=== PATIENT | female | born 1955 | race Caucasian/White ===

== ENCOUNTER 2021-10-15 19:15 | Observation (INO) ==
[2021-10-15 20:37] LABS: Bilirubin,Urine Negative (Negative); Blood,Urine Large (Negative); Clarity,Urine Cloudy (Clear); Color,Urine Yellow (Yellow); Glucose,Urine (UA) Normal (Normal); Ketones,Urine Negative (Negative); Leukocyte Esterase,Urine Large (Negative); Nitrite,Urine Negative (Negative); Protein,Urine 100 mg/dL (Neg-Trace); Specific Gravity,Urine 1.025 (1.010-1.025); Urobilinogen,Urine Normal (Normal)
[2021-10-15 20:43] LABS: Bacteria,Urine Many per hpf (None-Few); RBC,Urine 0-3 per hpf (0-3); Squamous Epithelial Cell,Urine Few per hpf (None-Few); WBC,Urine TNTC per hpf (0-3)
[2021-10-15] MEDS ORDERED: cefTRIAXone 1,000 MG in Water for inj. (sterile) 10 ML IVP ONE (20:49)
[2021-10-15 20:50] LABS: Basophils % 0.4 %; Eosinophils # 0.5 K/mcL (0.0-0.6); Eosinophils % 7.5 %; Hematocrit 41.1 % (35.3-44.9); Hemoglobin 13.1 g/dL (11.5-15.4); Immature Granulocytes % 0.1 % (0-4); Lymphocytes # 1.8 K/mcL (0.6-4.6); Lymphocytes % 24.4 %; Mean Corpuscular HGB Conc 31.9 g/dL (31.6-35.5); Mean Corpuscular Hemoglobin 29.2 pg (28.0-33.3); Mean Corpuscular Volume 91.7 fL (83.0-100.0); Mean Platelet Volume 8.9 fL (9.4-12.4); Monocytes # 0.6 K/mcL (0.0-1.3); Monocytes % 8.8 %; Neutrophils # 4.2 K/mcL (1.6-8.9); Platelet Count 285 K/mcL (140-400); Red Blood Count 4.48 M/mcL (3.82-4.97); Red Cell Distribution Width 13.2 % (11.5-14.5); Segmented Neutrophils % 58.8 %; White Blood Count 7.2 K/mcL (4.3-11.1)
[2021-10-15 21:08] LABS: BUN/Creatinine Ratio 32 (6-26); Blood Urea Nitrogen 25 mg/dL (8-23); Calcium 8.7 mg/dL (8.6-10.3); Carbon Dioxide 26 mEq/L (23-29); Chloride 105 mEq/L (98-107); Glucose 79 mg/dL (70-105); Osmolality,Calculated 291 (280-300); Potassium 3.8 mEq/L (3.5-5.1); Sodium 139 mEq/L (136-145); eGFR For African Americans > 60 (> 60); eGFR For Non-African Americans > 60 (> 60)
[2021-10-15] MEDS ORDERED: Naloxone 0.4 MG/ML INJ IVP PRN ×2 (22:30→23:11)
[2021-10-15] MEDS ORDERED: HYDROCODONE PO SCH (23:11)
[2021-10-15] MEDS ORDERED: [UNRECOGNIZED DRUG - OTHER] PO SCH (23:11)
[2021-10-15] MEDS ORDERED: ACETAMINOPHEN PO SCH (23:11)
[2021-10-16] MEDS: Aspirin 81 MG TAB.CHEW PO SCH (09:42)
[2021-10-16] MEDS: Cyanocobalamin (B-12) 1,000 MCG TABLET PO SCH (09:42)
[2021-10-16] MEDS: BuPROPion SR (12 HR) 100 MG TABLET PO SCH ×2 (09:42→20:53)
[2021-10-16] MEDS: Celecoxib 200 MG CAPSULE PO SCH ×2 (09:42→20:53)
[2021-10-16] MEDS: Prenatal Vit/FA 1 EACH TABLET PO SCH (09:42)
[2021-10-16] MEDS: Gabapentin 400 MG CAPSULE PO SCH ×2 (09:42→20:53)
[2021-10-16] MEDS: *HR* OxyCODONE Immed Rel 15 MG TABLET PO PRN (17:49)
[2021-10-17] MEDS: *HR* OxyCODONE Immed Rel 15 MG TABLET PO PRN ×3 (02:04→18:41)
[2021-10-17] MEDS: *HR* Enoxaparin 40 MG/0.4 ML SYRINGE SQ SCH (05:10)
[2021-10-17] MEDS: cefTRIAXone 1,000 MG in Water for inj. (sterile) 10 ML IVP SCH (08:35)
[2021-10-17] MEDS: Aspirin 81 MG TAB.CHEW PO SCH (08:36)
[2021-10-17] MEDS: Cyanocobalamin (B-12) 1,000 MCG TABLET PO SCH (08:36)
[2021-10-17] MEDS: Celecoxib 200 MG CAPSULE PO SCH ×2 (08:36→20:54)
[2021-10-17] MEDS: Gabapentin 400 MG CAPSULE PO SCH ×2 (08:36→20:54)
[2021-10-17] MEDS: Prenatal Vit/FA 1 EACH TABLET PO SCH (08:36)
[2021-10-17] MEDS: BuPROPion SR (12 HR) 100 MG TABLET PO SCH ×2 (11:03→20:54)
[2021-10-17 14:33] LABS: Basophils % 0.3 %; Eosinophils # 0.3 K/mcL (0.0-0.6); Eosinophils % 4.7 %; Hematocrit 40.7 % (35.3-44.9); Hemoglobin 12.9 g/dL (11.5-15.4); Immature Granulocytes % 0.2 % (0-4); Lymphocytes # 1.7 K/mcL (0.6-4.6); Lymphocytes % 30.3 %; Mean Corpuscular HGB Conc 31.7 g/dL (31.6-35.5); Mean Corpuscular Hemoglobin 29.5 pg (28.0-33.3); Mean Corpuscular Volume 92.9 fL (83.0-100.0); Monocytes # 0.5 K/mcL (0.0-1.3); Monocytes % 7.8 %; Neutrophils # 3.3 K/mcL (1.6-8.9); Platelet Count 285 K/mcL (140-400); Red Blood Count 4.38 M/mcL (3.82-4.97); Red Cell Distribution Width 13.1 % (11.5-14.5); Segmented Neutrophils % 56.7 %; White Blood Count 5.7 K/mcL (4.3-11.1)
[2021-10-17 14:54] LABS: BUN/Creatinine Ratio 19 (6-26); Blood Urea Nitrogen 15 mg/dL (8-23); Calcium 8.5 mg/dL (8.6-10.3); Carbon Dioxide 24 mEq/L (23-29); Chloride 108 mEq/L (98-107); Glucose 153 mg/dL (70-105); Osmolality,Calculated 294 (280-300); Potassium 3.9 mEq/L (3.5-5.1); Sodium 140 mEq/L (136-145); eGFR For African Americans > 60 (> 60); eGFR For Non-African Americans > 60 (> 60)
[2021-10-18] MEDS: *HR* OxyCODONE Immed Rel 15 MG TABLET PO PRN ×3 (02:48→22:33)
[2021-10-18] MEDS: *HR* Enoxaparin 40 MG/0.4 ML SYRINGE SQ SCH (05:02)
[2021-10-18] MEDS: Prenatal Vit/FA 1 EACH TABLET PO SCH (09:10)
[2021-10-18] MEDS: Aspirin 81 MG TAB.CHEW PO SCH (09:10)
[2021-10-18] MEDS: Cyanocobalamin (B-12) 1,000 MCG TABLET PO SCH (09:10)
[2021-10-18] MEDS: Gabapentin 400 MG CAPSULE PO SCH ×2 (09:10→20:02)
[2021-10-18] MEDS: Celecoxib 200 MG CAPSULE PO SCH ×2 (09:11→20:02)
[2021-10-18] MEDS: BuPROPion SR (12 HR) 100 MG TABLET PO SCH ×2 (09:12→20:03)
[2021-10-18] MEDS: cefTRIAXone 1,000 MG in Water for inj. (sterile) 10 ML IVP SCH (09:12)
[2021-10-18] MEDS: carvediloL 6.25 MG TABLET PO SCH (16:38)
[2021-10-18] MEDS: *HR* OxyCODONE ER (12 HR) 10 MG TABLET PO SCH (20:02)
[2021-10-19] MEDS: *HR* Enoxaparin 40 MG/0.4 ML SYRINGE SQ SCH (05:48)
[2021-10-19] MEDS: *HR* OxyCODONE ER (12 HR) 10 MG TABLET PO SCH (05:48)
[2021-10-19] MEDS: Prenatal Vit/FA 1 EACH TABLET PO SCH (08:48)
[2021-10-19] MEDS: Celecoxib 200 MG CAPSULE PO SCH (08:48)
[2021-10-19] MEDS: Aspirin 81 MG TAB.CHEW PO SCH (08:48)
[2021-10-19] MEDS: Gabapentin 400 MG CAPSULE PO SCH (08:48)
[2021-10-19] MEDS: BuPROPion SR (12 HR) 100 MG TABLET PO SCH (08:48)
[2021-10-19] MEDS: carvediloL 6.25 MG TABLET PO SCH (08:48)
[2021-10-19] MEDS: cefTRIAXone 1,000 MG in Water for inj. (sterile) 10 ML IVP SCH (08:48)
[2021-10-19] MEDS: *HR* OxyCODONE Immed Rel 15 MG TABLET PO PRN (08:53)
[2021-10-19 11:24] VITALS: BP 132/75; PULSE 73; RESP 17; TEMP 98.3; O2SAT 92
[2021-10-19] MEDS: Cyanocobalamin (B-12) 1,000 MCG TABLET PO SCH (14:06)
== END 2021-10-19 15:20 | disposition short-term general hospital (02) ==
LOC: INPGRE 19:15 → EMEROOGRE 19:15 → INPGRE 22:52
PROVIDERS: ADMIT Internal Medicine; ATTEND Internal Medicine

== ENCOUNTER 2021-10-27 14:35 | Inpatient (IN) ==
[2021-10-28] MEDS ORDERED: *HR* OxyCODONE Immed Rel 5 MG TABLET PO PRN (15:22)
[2021-10-28] MEDS ORDERED: NON-FORMULARY MEDICATION 1 EACH EACH (Alendronate Sodium [Fosamax] 70 MG Tablet) PO SCH (15:30)
[2021-10-28] MEDS: *HR* OxyCODONE Immed Rel 5 MG TABLET PO PRN ×2 (16:12→22:59)
[2021-10-28] MEDS: carvediloL 6.25 MG TABLET PO SCH (16:12)
[2021-10-28] MEDS: Cefdinir 300 MG CAPSULE PO SCH (21:34)
[2021-10-28] MEDS: Sennosides/Docusate Sodium TABLET PO SCH (21:35)
[2021-10-28] MEDS: BuPROPion SR (12 HR) 100 MG TABLET PO SCH (21:35)
[2021-10-28] MEDS: Gabapentin 400 MG CAPSULE PO SCH (21:35)
[2021-10-28] MEDS: methocarbamoL 500 MG TABLET PO PRN (21:41)
[2021-10-29] MEDS: *HR* OxyCODONE Immed Rel 5 MG TABLET PO PRN ×4 (05:04→22:37)
[2021-10-29 06:04] LABS: Basophils % 0.5 %; Eosinophils # 0.8 K/mcL (0.0-0.6); Eosinophils % 10.7 %; Hematocrit 41.1 % (35.3-44.9); Hemoglobin 13.2 g/dL (11.5-15.4); Immature Granulocytes % 0.3 % (0-4); Lymphocytes % 25.8 %; Mean Corpuscular HGB Conc 32.1 g/dL (31.6-35.5); Mean Corpuscular Hemoglobin 29.4 pg (28.0-33.3); Mean Corpuscular Volume 91.5 fL (83.0-100.0); Mean Platelet Volume 8.8 fL (9.4-12.4); Monocytes # 0.8 K/mcL (0.0-1.3); Monocytes % 10.5 %; Neutrophils # 4.1 K/mcL (1.6-8.9); Platelet Count 381 K/mcL (140-400); Red Blood Count 4.49 M/mcL (3.82-4.97); Red Cell Distribution Width 12.7 % (11.5-14.5); Segmented Neutrophils % 52.2 %; White Blood Count 7.8 K/mcL (4.3-11.1)
[2021-10-29 06:22] LABS: BUN/Creatinine Ratio 17 (6-26); Blood Urea Nitrogen 10 mg/dL (8-23); Calcium 8.8 mg/dL (8.6-10.3); Carbon Dioxide 30 mEq/L (23-29); Chloride 102 mEq/L (98-107); Glucose 88 mg/dL (70-105); Osmolality,Calculated 284 (280-300); Potassium 3.6 mEq/L (3.5-5.1); Sodium 138 mEq/L (136-145); eGFR For African Americans > 60 (> 60); eGFR For Non-African Americans > 60 (> 60)
[2021-10-29] MEDS: *HR* Enoxaparin 40 MG/0.4 ML SYRINGE SQ SCH (06:28)
[2021-10-29] MEDS: Cholecalciferol (D-3) 1,000 UNIT (25MCG) TABLET PO SCH (08:13)
[2021-10-29] MEDS: Sennosides/Docusate Sodium TABLET PO SCH ×2 (08:13→20:40)
[2021-10-29] MEDS: methocarbamoL 500 MG TABLET PO PRN ×2 (08:13→16:39)
[2021-10-29] MEDS: Prenatal Vit/FA 1 EACH TABLET PO SCH (08:13)
[2021-10-29] MEDS: Cyanocobalamin (B-12) 1,000 MCG TABLET PO SCH (08:13)
[2021-10-29] MEDS: BuPROPion SR (12 HR) 100 MG TABLET PO SCH ×2 (08:14→20:39)
[2021-10-29] MEDS: Gabapentin 400 MG CAPSULE PO SCH ×2 (08:14→20:39)
[2021-10-29] MEDS: carvediloL 6.25 MG TABLET PO SCH ×2 (08:14→16:39)
[2021-10-29] MEDS: Cefdinir 300 MG CAPSULE PO SCH ×2 (08:14→20:39)
[2021-10-29] MEDS: Loratadine/Pseudophed (12 HR) 1 EACH TABLET PO SCH (08:15)
[2021-10-29] MEDS ORDERED: NON-FORMULARY MEDICATION 1 EACH EACH (Biotin 5 MG Tablet) PO SCH (09:00)
[2021-10-29] MEDS ORDERED: *HR* OxyCODONE Immed Rel 5 MG TABLET PO PRN (10:37)
[2021-10-29 15:55] LABS: Bilirubin,Urine Negative (Negative); Blood,Urine Trace-intact (Negative); Clarity,Urine Clear (Clear); Color,Urine Yellow (Yellow); Glucose,Urine (UA) Normal (Normal); Ketones,Urine Negative (Negative); Leukocyte Esterase,Urine Trace (Negative); Nitrite,Urine Negative (Negative); Protein,Urine Trace mg/dL (Neg-Trace); Specific Gravity,Urine 1.025 (1.010-1.025); Urobilinogen,Urine Normal (Normal)
[2021-10-29 16:29] LABS: Squamous Epithelial Cell,Urine Few per hpf (None-Few)
[2021-10-29] MEDS: Nystatin POWDER 30 GM BOTTLE TP SCH (20:41)
[2021-10-30] MEDS: methocarbamoL 500 MG TABLET PO PRN ×2 (02:39→13:42)
[2021-10-30] MEDS: *HR* OxyCODONE Immed Rel 5 MG TABLET PO PRN ×5 (02:39→21:22)
[2021-10-30] MEDS: *HR* Enoxaparin 40 MG/0.4 ML SYRINGE SQ SCH (05:08)
[2021-10-30] MEDS: Cholecalciferol (D-3) 1,000 UNIT (25MCG) TABLET PO SCH (08:04)
[2021-10-30] MEDS: carvediloL 6.25 MG TABLET PO SCH ×2 (08:04→16:01)
[2021-10-30] MEDS: BuPROPion SR (12 HR) 100 MG TABLET PO SCH ×2 (08:04→21:22)
[2021-10-30] MEDS: Gabapentin 400 MG CAPSULE PO SCH ×2 (08:04→21:22)
[2021-10-30] MEDS: Cefdinir 300 MG CAPSULE PO SCH ×2 (08:05→21:22)
[2021-10-30] MEDS: Prenatal Vit/FA 1 EACH TABLET PO SCH (08:05)
[2021-10-30] MEDS: Nystatin POWDER 30 GM BOTTLE TP SCH ×3 (08:05→21:23)
[2021-10-30] MEDS: Cyanocobalamin (B-12) 1,000 MCG TABLET PO SCH (08:05)
[2021-10-30] MEDS: Sennosides/Docusate Sodium TABLET PO SCH ×2 (08:05→21:23)
[2021-10-30] MEDS: Loratadine/Pseudophed (12 HR) 1 EACH TABLET PO SCH (08:06)
[2021-10-30] MEDS: Nystatin SUSP 5 ML UD.LIQ PO SCH ×3 (13:42→21:23)
[2021-10-31] MEDS: *HR* OxyCODONE Immed Rel 5 MG TABLET PO PRN ×6 (02:06→23:37)
[2021-10-31] MEDS: *HR* Enoxaparin 40 MG/0.4 ML SYRINGE SQ SCH (06:36)
[2021-10-31] MEDS: carvediloL 6.25 MG TABLET PO SCH ×2 (09:02→15:43)
[2021-10-31] MEDS: BuPROPion SR (12 HR) 100 MG TABLET PO SCH ×2 (09:43→22:52)
[2021-10-31] MEDS: Gabapentin 400 MG CAPSULE PO SCH ×2 (09:43→22:52)
[2021-10-31] MEDS: Prenatal Vit/FA 1 EACH TABLET PO SCH (09:43)
[2021-10-31] MEDS: Cholecalciferol (D-3) 1,000 UNIT (25MCG) TABLET PO SCH (09:44)
[2021-10-31] MEDS: Sennosides/Docusate Sodium TABLET PO SCH ×2 (09:44→22:52)
[2021-10-31] MEDS: Nystatin SUSP 5 ML UD.LIQ PO SCH ×4 (09:44→22:52)
[2021-10-31] MEDS: Cefdinir 300 MG CAPSULE PO SCH ×2 (09:44→22:52)
[2021-10-31] MEDS: Cyanocobalamin (B-12) 1,000 MCG TABLET PO SCH (09:44)
[2021-10-31] MEDS: Nystatin POWDER 30 GM BOTTLE TP SCH ×3 (09:45→22:52)
[2021-10-31] MEDS: Loratadine/Pseudophed (12 HR) 1 EACH TABLET PO SCH (09:49)
[2021-10-31] MEDS: methocarbamoL 500 MG TABLET PO PRN (13:33)
[2021-11-01] MEDS: *HR* Enoxaparin 40 MG/0.4 ML SYRINGE SQ SCH (04:13)
[2021-11-01] MEDS: *HR* OxyCODONE Immed Rel 5 MG TABLET PO PRN ×5 (04:14→23:37)
[2021-11-01 04:31] LABS: Basophils % 0.5 %; Eosinophils # 0.7 K/mcL (0.0-0.6); Eosinophils % 9.1 %; Hematocrit 38.5 % (35.3-44.9); Hemoglobin 12.6 g/dL (11.5-15.4); Immature Granulocytes % 0.3 % (0-4); Lymphocytes % 27.7 %; Mean Corpuscular HGB Conc 32.7 g/dL (31.6-35.5); Mean Corpuscular Hemoglobin 30.1 pg (28.0-33.3); Mean Corpuscular Volume 91.9 fL (83.0-100.0); Mean Platelet Volume 8.7 fL (9.4-12.4); Monocytes # 0.7 K/mcL (0.0-1.3); Monocytes % 9.1 %; Neutrophils # 3.9 K/mcL (1.6-8.9); Platelet Count 347 K/mcL (140-400); Red Blood Count 4.19 M/mcL (3.82-4.97); Red Cell Distribution Width 12.7 % (11.5-14.5); Segmented Neutrophils % 53.3 %; White Blood Count 7.3 K/mcL (4.3-11.1)
[2021-11-01 04:48] LABS: BUN/Creatinine Ratio 19 (6-26); Blood Urea Nitrogen 12 mg/dL (8-23); Calcium 8.6 mg/dL (8.6-10.3); Carbon Dioxide 31 mEq/L (23-29); Chloride 101 mEq/L (98-107); Glucose 92 mg/dL (70-105); Magnesium 2.4 mg/dL (1.6-2.6); Osmolality,Calculated 285 (280-300); Potassium 4.1 mEq/L (3.5-5.1); Sodium 138 mEq/L (136-145); eGFR For African Americans > 60 (> 60); eGFR For Non-African Americans > 60 (> 60)
[2021-11-01] MEDS: Cholecalciferol (D-3) 1,000 UNIT (25MCG) TABLET PO SCH (08:20)
[2021-11-01] MEDS: carvediloL 6.25 MG TABLET PO SCH ×2 (08:20→15:48)
[2021-11-01] MEDS: BuPROPion SR (12 HR) 100 MG TABLET PO SCH ×2 (08:20→23:37)
[2021-11-01] MEDS: Prenatal Vit/FA 1 EACH TABLET PO SCH (08:20)
[2021-11-01] MEDS: methocarbamoL 500 MG TABLET PO PRN ×2 (08:21→15:49)
[2021-11-01] MEDS: Sennosides/Docusate Sodium TABLET PO SCH ×2 (08:21→23:36)
[2021-11-01] MEDS: Cyanocobalamin (B-12) 1,000 MCG TABLET PO SCH (08:21)
[2021-11-01] MEDS: Nystatin POWDER 30 GM BOTTLE TP SCH ×3 (08:22→23:36)
[2021-11-01] MEDS: Nystatin SUSP 5 ML UD.LIQ PO SCH ×4 (08:22→23:36)
[2021-11-01] MEDS: Gabapentin 400 MG CAPSULE PO SCH ×2 (08:22→23:36)
[2021-11-01] MEDS: Cefdinir 300 MG CAPSULE PO SCH ×2 (08:22→23:36)
[2021-11-01] MEDS: Loratadine/Pseudophed (12 HR) 1 EACH TABLET PO SCH (09:40)
[2021-11-02] MEDS: methocarbamoL 500 MG TABLET PO PRN ×2 (00:16→15:20)
[2021-11-02] MEDS: *HR* OxyCODONE Immed Rel 5 MG TABLET PO PRN ×5 (03:35→22:24)
[2021-11-02] MEDS: *HR* Enoxaparin 40 MG/0.4 ML SYRINGE SQ SCH (06:45)
[2021-11-02] MEDS: carvediloL 6.25 MG TABLET PO SCH ×2 (08:28→15:20)
[2021-11-02] MEDS: polyethylene glycoL 3350 17 GM POWD.PACK PO SCH (08:28)
[2021-11-02] MEDS: Prenatal Vit/FA 1 EACH TABLET PO SCH (08:28)
[2021-11-02] MEDS: Cholecalciferol (D-3) 1,000 UNIT (25MCG) TABLET PO SCH (08:28)
[2021-11-02] MEDS: BuPROPion SR (12 HR) 100 MG TABLET PO SCH ×2 (08:28→20:04)
[2021-11-02] MEDS: Nystatin SUSP 5 ML UD.LIQ PO SCH ×4 (08:29→20:02)
[2021-11-02] MEDS: Gabapentin 400 MG CAPSULE PO SCH ×2 (08:29→20:04)
[2021-11-02] MEDS: Sennosides/Docusate Sodium TABLET PO SCH ×2 (08:29→20:02)
[2021-11-02] MEDS: Cefdinir 300 MG CAPSULE PO SCH ×2 (08:29→20:03)
[2021-11-02] MEDS: Cyanocobalamin (B-12) 1,000 MCG TABLET PO SCH (08:29)
[2021-11-02] MEDS: Loratadine/Pseudophed (12 HR) 1 EACH TABLET PO SCH (08:38)
[2021-11-02] MEDS: Nystatin POWDER 30 GM BOTTLE TP SCH ×3 (08:38→20:04)
[2021-11-03] MEDS: methocarbamoL 500 MG TABLET PO PRN ×3 (00:07→16:32)
[2021-11-03] MEDS: *HR* OxyCODONE Immed Rel 5 MG TABLET PO PRN ×5 (03:35→22:25)
[2021-11-03] MEDS: *HR* Enoxaparin 40 MG/0.4 ML SYRINGE SQ SCH (04:51)
[2021-11-03] MEDS: Cyanocobalamin (B-12) 1,000 MCG TABLET PO SCH (08:08)
[2021-11-03] MEDS: Gabapentin 400 MG CAPSULE PO SCH ×2 (08:08→19:59)
[2021-11-03] MEDS: Cholecalciferol (D-3) 1,000 UNIT (25MCG) TABLET PO SCH (08:09)
[2021-11-03] MEDS: Prenatal Vit/FA 1 EACH TABLET PO SCH (08:09)
[2021-11-03] MEDS: Sennosides/Docusate Sodium TABLET PO SCH ×2 (08:09→19:59)
[2021-11-03] MEDS: Nystatin SUSP 5 ML UD.LIQ PO SCH ×4 (08:09→19:58)
[2021-11-03] MEDS: carvediloL 6.25 MG TABLET PO SCH ×2 (08:09→16:31)
[2021-11-03] MEDS: Cefdinir 300 MG CAPSULE PO SCH ×2 (08:09→19:59)
[2021-11-03] MEDS: BuPROPion SR (12 HR) 100 MG TABLET PO SCH ×2 (08:09→19:59)
[2021-11-03] MEDS: polyethylene glycoL 3350 17 GM POWD.PACK PO SCH (08:10)
[2021-11-03] MEDS: Loratadine/Pseudophed (12 HR) 1 EACH TABLET PO SCH (08:10)
[2021-11-03] MEDS: Nystatin POWDER 30 GM BOTTLE TP SCH ×3 (09:28→19:59)
[2021-11-03 14:54] LABS: Adenovirus Not Detected (Not Detect); Bordetella Pertussis Not Detected (Not Detect); Chlamydophila pneumoniae Not Detected (Not Detect); Coronavirus 229E Not Detected (Not Detect); Coronavirus HKU1 Not Detected (Not Detect); Coronavirus NL63 Not Detected (Not Detect); Coronavirus OC43 Not Detected (Not Detect); Human Metapneumovirus Not Detected (Not Detect); Human Rhinovirus/Enterovirus Not Detected (Not Detect); Influenza A Subtype 2009 H1 Not Detected (Not Detect); Influenza B Not Detected (Not Detect); Mycoplasma pneumoniae Not Detected (Not Detect); Parainfluenza Virus 1 Not Detected (Not Detect); Parainfluenza Virus 2 Not Detected (Not Detect); Parainfluenza Virus 3 Not Detected (Not Detect); Parainfluenza Virus 4 Not Detected (Not Detect); Respiratory Syncytial Virus Not Detected (Not Detect); SARS-CoV-2 Not Detected (Not Detect)
[2021-11-04] MEDS: methocarbamoL 500 MG TABLET PO PRN ×4 (00:21→21:09)
[2021-11-04] MEDS: *HR* Enoxaparin 40 MG/0.4 ML SYRINGE SQ SCH (04:36)
[2021-11-04] MEDS: *HR* OxyCODONE Immed Rel 5 MG TABLET PO PRN ×4 (04:36→21:09)
[2021-11-04] MEDS: Nystatin SUSP 5 ML UD.LIQ PO SCH ×2 (08:22→15:12)
[2021-11-04] MEDS: polyethylene glycoL 3350 17 GM POWD.PACK PO SCH (08:22)
[2021-11-04] MEDS: carvediloL 6.25 MG TABLET PO SCH ×2 (08:23→15:12)
[2021-11-04] MEDS: BuPROPion SR (12 HR) 100 MG TABLET PO SCH ×2 (08:23→21:09)
[2021-11-04] MEDS: Loratadine/Pseudophed (12 HR) 1 EACH TABLET PO SCH (08:23)
[2021-11-04] MEDS: Prenatal Vit/FA 1 EACH TABLET PO SCH (08:24)
[2021-11-04] MEDS: Cyanocobalamin (B-12) 1,000 MCG TABLET PO SCH (08:24)
[2021-11-04] MEDS: Cefdinir 300 MG CAPSULE PO SCH ×2 (08:24→21:08)
[2021-11-04] MEDS: Gabapentin 400 MG CAPSULE PO SCH ×2 (08:24→21:08)
[2021-11-04] MEDS: Sennosides/Docusate Sodium TABLET PO SCH ×2 (08:24→21:09)
[2021-11-04] MEDS: Cholecalciferol (D-3) 1,000 UNIT (25MCG) TABLET PO SCH (08:24)
[2021-11-04] MEDS: Nystatin POWDER 30 GM BOTTLE TP SCH ×3 (08:25→21:13)
[2021-11-05] MEDS: *HR* OxyCODONE Immed Rel 5 MG TABLET PO PRN ×3 (02:07→10:01)
[2021-11-05] MEDS: methocarbamoL 500 MG TABLET PO PRN ×3 (06:20→22:38)
[2021-11-05] MEDS: *HR* Enoxaparin 40 MG/0.4 ML SYRINGE SQ SCH (06:20)
[2021-11-05] MEDS: Sennosides/Docusate Sodium TABLET PO SCH ×2 (08:33→22:38)
[2021-11-05] MEDS: Cefdinir 300 MG CAPSULE PO SCH (08:33)
[2021-11-05] MEDS: carvediloL 6.25 MG TABLET PO SCH ×2 (08:33→16:53)
[2021-11-05] MEDS: Prenatal Vit/FA 1 EACH TABLET PO SCH (08:33)
[2021-11-05] MEDS: Cholecalciferol (D-3) 1,000 UNIT (25MCG) TABLET PO SCH (08:34)
[2021-11-05] MEDS: Cyanocobalamin (B-12) 1,000 MCG TABLET PO SCH (08:34)
[2021-11-05] MEDS: BuPROPion SR (12 HR) 100 MG TABLET PO SCH ×2 (08:34→22:38)
[2021-11-05] MEDS: Gabapentin 400 MG CAPSULE PO SCH (08:34)
[2021-11-05] MEDS: polyethylene glycoL 3350 17 GM POWD.PACK PO SCH (08:34)
[2021-11-05] MEDS: Nystatin POWDER 30 GM BOTTLE TP SCH ×3 (08:41→22:43)
[2021-11-05] MEDS: Loratadine/Pseudophed (12 HR) 1 EACH TABLET PO SCH (08:41)
[2021-11-05] MEDS ORDERED: *HR* OxyCODONE/APAP 5/325 TABLET PO PRN (13:42)
[2021-11-05] MEDS: *HR* OxyCODONE/APAP 7.5/325 TABLET PO PRN ×3 (14:11→22:38)
[2021-11-05] MEDS: Gabapentin 300 MG CAPSULE PO SCH ×2 (14:12→22:37)
[2021-11-05] MEDS ORDERED: diazePAM 2 MG TABLET PO PRN (16:33)
[2021-11-06] MEDS: *HR* OxyCODONE/APAP 7.5/325 TABLET PO PRN ×5 (02:32→22:02)
[2021-11-06] MEDS: methocarbamoL 500 MG TABLET PO PRN ×2 (05:19→22:02)
[2021-11-06] MEDS: *HR* Enoxaparin 40 MG/0.4 ML SYRINGE SQ SCH (05:19)
[2021-11-06] MEDS: Prenatal Vit/FA 1 EACH TABLET PO SCH (07:56)
[2021-11-06] MEDS: carvediloL 6.25 MG TABLET PO SCH ×2 (07:56→16:50)
[2021-11-06] MEDS: BuPROPion SR (12 HR) 100 MG TABLET PO SCH ×2 (07:56→22:01)
[2021-11-06] MEDS: Gabapentin 300 MG CAPSULE PO SCH (07:57)
[2021-11-06] MEDS: Loratadine/Pseudophed (12 HR) 1 EACH TABLET PO SCH (07:57)
[2021-11-06] MEDS: Cholecalciferol (D-3) 1,000 UNIT (25MCG) TABLET PO SCH (07:57)
[2021-11-06] MEDS: Sennosides/Docusate Sodium TABLET PO SCH ×2 (07:57→22:01)
[2021-11-06] MEDS: Cyanocobalamin (B-12) 1,000 MCG TABLET PO SCH (07:57)
[2021-11-06] MEDS: polyethylene glycoL 3350 17 GM POWD.PACK PO SCH (07:57)
[2021-11-06] MEDS: Nystatin POWDER 30 GM BOTTLE TP SCH ×3 (07:57→22:01)
[2021-11-06] MEDS: Gabapentin 400 MG CAPSULE PO SCH ×2 (16:50→22:01)
[2021-11-06] MEDS: Menthol 1 EACH LOZENGE PO PRN (22:03)
[2021-11-07] MEDS: *HR* Enoxaparin 40 MG/0.4 ML SYRINGE SQ SCH (04:31)
[2021-11-07] MEDS: methocarbamoL 500 MG TABLET PO PRN ×2 (04:31→18:36)
[2021-11-07] MEDS: *HR* OxyCODONE/APAP 7.5/325 TABLET PO PRN ×4 (04:32→22:46)
[2021-11-07] MEDS: Menthol 1 EACH LOZENGE PO PRN (04:33)
[2021-11-07] MEDS: polyethylene glycoL 3350 17 GM POWD.PACK PO SCH (09:14)
[2021-11-07] MEDS: Cholecalciferol (D-3) 1,000 UNIT (25MCG) TABLET PO SCH (09:14)
[2021-11-07] MEDS: BuPROPion SR (12 HR) 100 MG TABLET PO SCH ×2 (09:14→21:11)
[2021-11-07] MEDS: Cyanocobalamin (B-12) 1,000 MCG TABLET PO SCH (09:14)
[2021-11-07] MEDS: Prenatal Vit/FA 1 EACH TABLET PO SCH (09:14)
[2021-11-07] MEDS: Nystatin POWDER 30 GM BOTTLE TP SCH ×3 (09:15→21:36)
[2021-11-07] MEDS: Loratadine/Pseudophed (12 HR) 1 EACH TABLET PO SCH (09:15)
[2021-11-07] MEDS: carvediloL 6.25 MG TABLET PO SCH ×2 (09:15→17:23)
[2021-11-07] MEDS: Gabapentin 400 MG CAPSULE PO SCH ×3 (09:15→21:11)
[2021-11-07] MEDS: Sennosides/Docusate Sodium TABLET PO SCH ×2 (09:15→21:15)
[2021-11-07 13:02] LABS: Adenovirus Not Detected (Not Detect); Bordetella Pertussis Not Detected (Not Detect); Chlamydophila pneumoniae Not Detected (Not Detect); Coronavirus 229E Not Detected (Not Detect); Coronavirus HKU1 Not Detected (Not Detect); Coronavirus NL63 Not Detected (Not Detect); Coronavirus OC43 Not Detected (Not Detect); Human Metapneumovirus Not Detected (Not Detect); Human Rhinovirus/Enterovirus Not Detected (Not Detect); Influenza A Subtype 2009 H1 Not Detected (Not Detect); Influenza B Not Detected (Not Detect); Parainfluenza Virus 1 Not Detected (Not Detect); Parainfluenza Virus 2 Not Detected (Not Detect); Parainfluenza Virus 3 Not Detected (Not Detect); Parainfluenza Virus 4 Not Detected (Not Detect); Respiratory Syncytial Virus Not Detected (Not Detect)
[2021-11-07 13:03] LABS: Mycoplasma pneumoniae Not Detected (Not Detect)
[2021-11-07 13:04] LABS: SARS-CoV-2 DETECTED (Not Detect)
[2021-11-07] MEDS: dexAMETHasone 4 MG TABLET PO SCH (13:52)
[2021-11-07 13:53] LABS: Basophils % 0.4 %; Eosinophils # 0.1 K/mcL (0.0-0.6); Eosinophils % 2.6 %; Hematocrit 37.9 % (35.3-44.9); Hemoglobin 12.1 g/dL (11.5-15.4); Immature Granulocytes % 0.2 % (0-4); Lymphocytes # 1.4 K/mcL (0.6-4.6); Lymphocytes % 30.7 %; Mean Corpuscular HGB Conc 31.9 g/dL (31.6-35.5); Mean Corpuscular Hemoglobin 29.8 pg (28.0-33.3); Mean Corpuscular Volume 93.3 fL (83.0-100.0); Mean Platelet Volume 8.9 fL (9.4-12.4); Monocytes # 0.9 K/mcL (0.0-1.3); Monocytes % 18.5 %; Neutrophils # 2.2 K/mcL (1.6-8.9); Platelet Count 283 K/mcL (140-400); Red Blood Count 4.06 M/mcL (3.82-4.97); Red Cell Distribution Width 12.9 % (11.5-14.5); Segmented Neutrophils % 47.6 %; White Blood Count 4.6 K/mcL (4.3-11.1)
[2021-11-07 14:12] LABS: Alanine Aminotransferase 12 Units/L (7-52); Albumin 3.2 g/dL (3.5-5.7); Albumin/Globulin Ratio 1.1 (1.1-2.2); Alkaline Phosphatase 102 Units/L (34-104); Aspartate Amino Transferase 22 Units/L (13-39); BUN/Creatinine Ratio 19 (6-26); Bilirubin,Total 0.3 mg/dL (0.3-1.0); Blood Urea Nitrogen 16 mg/dL (8-23); Calcium 8.3 mg/dL (8.6-10.3); Carbon Dioxide 26 mEq/L (23-29); Chloride 104 mEq/L (98-107); Globulin 2.9 g/dL (2.4-3.5); Glucose 105 mg/dL (70-105); Osmolality,Calculated 284 (280-300); Potassium 3.9 mEq/L (3.5-5.1); Sodium 136 mEq/L (136-145); Total Protein 6.1 g/dL (6.4-8.9); eGFR For African Americans > 60 (> 60); eGFR For Non-African Americans > 60 (> 60)
[2021-11-07 14:34] LABS: Platelet Estimate Normal (Normal)
[2021-11-07] MEDS: levoFLOXacin 750 MG TABLET PO SCH (21:12)
[2021-11-08] MEDS: methocarbamoL 500 MG TABLET PO PRN ×4 (00:49→23:34)
[2021-11-08 00:52] LABS: Ferritin 58 ng/mL (10-120)
[2021-11-08] MEDS: *HR* OxyCODONE/APAP 7.5/325 TABLET PO PRN ×5 (02:54→20:19)
[2021-11-08] MEDS: *HR* Enoxaparin 40 MG/0.4 ML SYRINGE SQ SCH (05:21)
[2021-11-08] MEDS: BuPROPion SR (12 HR) 100 MG TABLET PO SCH ×2 (07:40→20:18)
[2021-11-08] MEDS: Cyanocobalamin (B-12) 1,000 MCG TABLET PO SCH (07:40)
[2021-11-08] MEDS: Gabapentin 400 MG CAPSULE PO SCH ×3 (07:41→20:19)
[2021-11-08] MEDS: Cholecalciferol (D-3) 1,000 UNIT (25MCG) TABLET PO SCH (07:41)
[2021-11-08] MEDS: dexAMETHasone 4 MG TABLET PO SCH (07:41)
[2021-11-08] MEDS: carvediloL 6.25 MG TABLET PO SCH ×2 (07:42→16:19)
[2021-11-08] MEDS: Prenatal Vit/FA 1 EACH TABLET PO SCH (07:42)
[2021-11-08] MEDS: Nystatin POWDER 30 GM BOTTLE TP SCH ×3 (07:43→20:18)
[2021-11-08] MEDS: Loratadine/Pseudophed (12 HR) 1 EACH TABLET PO SCH (07:43)
[2021-11-08] MEDS: Sennosides/Docusate Sodium TABLET PO SCH ×2 (07:44→20:18)
[2021-11-08] MEDS: polyethylene glycoL 3350 17 GM POWD.PACK PO SCH (07:44)
[2021-11-08] MEDS: levoFLOXacin 750 MG TABLET PO SCH (20:19)
[2021-11-09] MEDS: *HR* OxyCODONE/APAP 7.5/325 TABLET PO PRN ×4 (00:19→22:10)
[2021-11-09] MEDS: *HR* Enoxaparin 40 MG/0.4 ML SYRINGE SQ SCH (05:07)
[2021-11-09 05:14] LABS: Basophils % 0.2 %; Eosinophils % 0.5 %; Hematocrit 37.8 % (35.3-44.9); Hemoglobin 12.2 g/dL (11.5-15.4); Immature Granulocytes % 0.3 % (0-4); Lymphocytes % 33.3 %; Mean Corpuscular HGB Conc 32.3 g/dL (31.6-35.5); Mean Corpuscular Hemoglobin 29.6 pg (28.0-33.3); Mean Corpuscular Volume 91.7 fL (83.0-100.0); Mean Platelet Volume 8.8 fL (9.4-12.4); Monocytes # 0.7 K/mcL (0.0-1.3); Monocytes % 11.7 %; Neutrophils # 3.2 K/mcL (1.6-8.9); Platelet Count 316 K/mcL (140-400); Red Blood Count 4.12 M/mcL (3.82-4.97); Red Cell Distribution Width 12.6 % (11.5-14.5)
[2021-11-09 05:29] LABS: Alanine Aminotransferase 10 Units/L (7-52); Albumin 3.2 g/dL (3.5-5.7); Albumin/Globulin Ratio 1.1 (1.1-2.2); Alkaline Phosphatase 87 Units/L (34-104); Aspartate Amino Transferase 14 Units/L (13-39); BUN/Creatinine Ratio 24 (6-26); Bilirubin,Total 0.2 mg/dL (0.3-1.0); Blood Urea Nitrogen 16 mg/dL (8-23); Calcium 8.5 mg/dL (8.6-10.3); Carbon Dioxide 29 mEq/L (23-29); Chloride 103 mEq/L (98-107); Globulin 2.8 g/dL (2.4-3.5); Glucose 90 mg/dL (70-105); Osmolality,Calculated 289 (280-300); Potassium 4.1 mEq/L (3.5-5.1); Sodium 139 mEq/L (136-145); eGFR For African Americans > 60 (> 60); eGFR For Non-African Americans > 60 (> 60)
[2021-11-09] MEDS: BuPROPion SR (12 HR) 100 MG TABLET PO SCH ×2 (08:01→22:09)
[2021-11-09] MEDS: Cholecalciferol (D-3) 1,000 UNIT (25MCG) TABLET PO SCH (08:01)
[2021-11-09] MEDS: Prenatal Vit/FA 1 EACH TABLET PO SCH (08:01)
[2021-11-09] MEDS: methocarbamoL 500 MG TABLET PO PRN ×2 (08:01→19:40)
[2021-11-09] MEDS: Sennosides/Docusate Sodium TABLET PO SCH ×2 (08:02→22:10)
[2021-11-09] MEDS: Loratadine/Pseudophed (12 HR) 1 EACH TABLET PO SCH (08:02)
[2021-11-09] MEDS: Cyanocobalamin (B-12) 1,000 MCG TABLET PO SCH (08:02)
[2021-11-09] MEDS: carvediloL 6.25 MG TABLET PO SCH ×2 (08:02→19:39)
[2021-11-09] MEDS: Gabapentin 400 MG CAPSULE PO SCH ×3 (10:20→22:09)
[2021-11-09] MEDS: dexAMETHasone 4 MG TABLET PO SCH (10:21)
[2021-11-09] MEDS: Nystatin POWDER 30 GM BOTTLE TP SCH ×3 (10:21→22:10)
[2021-11-09] MEDS: polyethylene glycoL 3350 17 GM POWD.PACK PO SCH (10:21)
[2021-11-09] MEDS: levoFLOXacin 750 MG TABLET PO SCH (22:09)
[2021-11-10] MEDS: methocarbamoL 500 MG TABLET PO PRN ×4 (02:10→21:47)
[2021-11-10] MEDS: *HR* OxyCODONE/APAP 7.5/325 TABLET PO PRN ×5 (02:10→21:47)
[2021-11-10] MEDS: *HR* Enoxaparin 40 MG/0.4 ML SYRINGE SQ SCH (06:13)
[2021-11-10] MEDS: carvediloL 6.25 MG TABLET PO SCH ×2 (09:04→16:01)
[2021-11-10] MEDS: BuPROPion SR (12 HR) 100 MG TABLET PO SCH ×2 (09:04→21:48)
[2021-11-10] MEDS: Gabapentin 400 MG CAPSULE PO SCH ×3 (09:04→21:47)
[2021-11-10] MEDS: Sennosides/Docusate Sodium TABLET PO SCH ×2 (09:04→21:47)
[2021-11-10] MEDS: Cholecalciferol (D-3) 1,000 UNIT (25MCG) TABLET PO SCH (09:05)
[2021-11-10] MEDS: Prenatal Vit/FA 1 EACH TABLET PO SCH (09:05)
[2021-11-10] MEDS: dexAMETHasone 4 MG TABLET PO SCH (09:05)
[2021-11-10] MEDS: Cyanocobalamin (B-12) 1,000 MCG TABLET PO SCH (09:05)
[2021-11-10] MEDS: polyethylene glycoL 3350 17 GM POWD.PACK PO SCH (09:06)
[2021-11-10] MEDS: Loratadine/Pseudophed (12 HR) 1 EACH TABLET PO SCH (09:36)
[2021-11-10] MEDS: Nystatin POWDER 30 GM BOTTLE TP SCH ×3 (09:36→21:46)
[2021-11-10] MEDS: levoFLOXacin 750 MG TABLET PO SCH (21:47)
[2021-11-10] MEDS: Menthol 1 EACH LOZENGE PO PRN (21:47)
[2021-11-11] MEDS: *HR* OxyCODONE/APAP 7.5/325 TABLET PO PRN ×3 (02:45→12:00)
[2021-11-11] MEDS: *HR* Enoxaparin 40 MG/0.4 ML SYRINGE SQ SCH (05:10)
[2021-11-11] MEDS: Gabapentin 400 MG CAPSULE PO SCH (07:39)
[2021-11-11] MEDS: Prenatal Vit/FA 1 EACH TABLET PO SCH (07:39)
[2021-11-11] MEDS: Cyanocobalamin (B-12) 1,000 MCG TABLET PO SCH (07:39)
[2021-11-11] MEDS: dexAMETHasone 4 MG TABLET PO SCH (07:39)
[2021-11-11] MEDS: BuPROPion SR (12 HR) 100 MG TABLET PO SCH (07:39)
[2021-11-11] MEDS: carvediloL 6.25 MG TABLET PO SCH (07:39)
[2021-11-11] MEDS: Sennosides/Docusate Sodium TABLET PO SCH (07:39)
[2021-11-11] MEDS: Loratadine/Pseudophed (12 HR) 1 EACH TABLET PO SCH (07:40)
[2021-11-11] MEDS: Cholecalciferol (D-3) 1,000 UNIT (25MCG) TABLET PO SCH (07:40)
[2021-11-11] MEDS: polyethylene glycoL 3350 17 GM POWD.PACK PO SCH (07:40)
[2021-11-11] MEDS: Nystatin POWDER 30 GM BOTTLE TP SCH (07:41)
[2021-11-11 07:46] VITALS: RESP 18; TEMP 97.5; O2SAT 95
[2021-11-11] MEDS: methocarbamoL 500 MG TABLET PO PRN (10:48)
[2021-11-11 10:50] VITALS: BP 127/74; PULSE 76
== END 2021-11-11 13:50 | disposition home health service (06) | DRG 551 ==
LOC: INPGRE 10-28 15:08
PROVIDERS: ADMIT Family Medicine; ATTEND Family Medicine